=== PATIENT | female | born 1990 | race Caucasian/White ===

== ENCOUNTER 2022-02-06 19:43 | Emergency (ER) | payer BC ==
[2022-02-06 19:57] VITALS: TEMP 98.1
--- NOTE | 2022-02-07 07:19 | ED ---
General Adult HPI - General Chief complaint: Abdominal Pain Stated complaint: chest pain,back pain,nausea Time Seen by Provider: 02/07/22 07:05 Source: patient, RN notes reviewed, old records reviewed Mode of arrival: ambulatory Limitations: no limitations - History of Present Illness Initial comments: 32-year-old female presenting for evaluation of upper abdominal pain and left flank pain. Symptoms began about 13 hours prior to my evaluation. Patient developed this sharp pain followed by an episode of vomiting. She's had persistent nausea since that time. She has pain that wraps around the left upper abdomen into the left flank into the epigastrium. She denies continued vomiting and has been able to drink water but has persistent nausea. The pain is been constant. No dysuria or hematuria. Denies current . - Related Data Allergies Allergy/AdvReac Type Severity Reaction Status Date / Time morphine AdvReac Unknown Verified 02/06/22 19:57 Childhood Review of Systems ROS Statement: Those systems with pertinent positive or pertinent negative responses have been documented in the HPI. ROS Other: All systems not noted in ROS Statement are negative. Past Medical History Past Medical History: Unable to Obtain History of Any Multi-Drug Resistant Organisms: None Reported Past Surgical History: No Surgical Hx Reported Past Psychological History: No Psychological Hx Reported Smoking Status: Never smoker Past Alcohol Use History: Rare Past Drug Use History: None Reported General Exam Limitations: no limitations General appearance: alert, in no apparent distress Head exam: Present: atraumatic, normocephalic Eye exam: Present: normal appearance, PERRL ENT exam: Present: normal exam Neck exam: Present: normal inspection. Absent: tenderness, meningismus Respiratory exam: Present: normal lung sounds bilaterally. Absent: respiratory distress, wheezes Cardiovascular Exam: Present: regular rate, normal rhythm GI/Abdominal exam: Present: soft, tenderness (Epigastric). Absent: distended Extremities exam: Present: normal inspection, normal capillary refill Back exam: Present: normal inspection, CVA tenderness (L) Neurological exam: Present: alert, oriented X3, CN II-XII intact, normal gait. Absent: motor sensory deficit Psychiatric exam: Present: normal affect, normal mood Skin exam: Present: warm, dry, intact. Absent: cyanosis, diaphoretic Course Vital Signs 02/06/22 02/07/22 02/07/22 19:54 09:14 10:45 Temperature 98.1 F Pulse Rate 94 70 66 Respiratory 18 16 16 Rate Blood Pressure 152/86 158/83 147/79 O2 Sat by Pulse 100 100 100 Oximetry - Reevaluation(s) Reevaluation #1: 02/07/22 07:05 Patient admitted awaiting for 12 hours prior to my arrival. Reevaluation #2: 02/07/22 10:18 Patient feeling better not requiring any pain medicine. EKG Findings - EKG Comments: EKG Findings:: EKG: Sinus rhythm, rate of 89, KS interval 140, QRS duration 86, QTC 4:15, no ST segment elevation. Medical Decision Making - Medical Decision Making 32-year-old female with epigastric abdominal pain, workup initiated after a long wait in the emergency arm and waiting room. Normal CBC, normal CMP, and mild transaminitis with a normal bilirubin. Negative d-dimer, negative troponin, nonischemic EKG. I did perform an ultrasound of the gallbladder which radiology's interpretation is pending secondary to technical difficulties, this shows multiple gallstones, normal common bile duct, normal wall thickness. I discussed the results with Dr. Hastings covering for general surgery. He will see the patient in his office tomorrow. This appointment has been made. Please return with fever, worsening pain, or vomiting. - Lab Data Result diagrams: 02/07/22 07:29 02/07/22 07:29 Lab Results 02/07/22 02/07/22 02/07/22 Range/Units 07:29 07:29 07:29 WBC 9.0 (3.8-10.6) k/uL RBC 4.56 (3.80-5.40) m/uL Hgb 11.6 (11.4-16.0) gm/dL Hct 37.1 (34.0-46.0) % MCV 81.5 (80.0-100.0) fL MCH 25.4 (25.0-35.0) pg MCHC 31.1 (31.0-37.0) g/dL RDW 14.4 (11.5-15.5) % Plt Count 343 (150-450) k/uL MPV 6.3 Neutrophils % 78 % Lymphocytes % 15 % Monocytes % 5 % Eosinophils % 1 % Basophils % 0 % Neutrophils # 7.0 (1.3-7.7) k/uL Lymphocytes # 1.3 (1.0-4.8) k/uL Monocytes # 0.4 (0-1.0) k/uL Eosinophils # 0.1 (0-0.7) k/uL Basophils # 0.0 (0-0.2) k/uL Hypochromasia Slight APTT 23.8 (22.0-30.0) sec D-Dimer 0.49 (<0.60) mg/L FEU Sodium 137 (137-145) mmol/L Potassium 3.9 (3.5-5.1) mmol/L Chloride 101 (98-107) mmol/L Carbon Dioxide 27 (22-30) mmol/L Anion Gap 9 mmol/L BUN 11 (7-17) mg/dL Creatinine 0.69 (0.52-1.04) mg/dL Est GFR (CKD-EPI)AfAm >90 (>60 ml/min/1.73 sqM) Est GFR (CKD-EPI)NonAf >90 (>60 ml/min/1.73 sqM) Glucose 92 (74-99) mg/dL Calcium 9.3 (8.4-10.2) mg/dL Total Bilirubin 1.2 (0.2-1.3) mg/dL AST 353 H (14-36) U/L ALT 258 H (4-34) U/L Alkaline Phosphatase 160 H (38-126) U/L Troponin I (0.000-0.034) ng/mL Total Protein 8.3 H (6.3-8.2) g/dL Albumin 4.4 (3.5-5.0) g/dL Amylase 47 (30-110) U/L Lipase 45 (23-300) U/L Urine Color Urine Appearance (Clear) Urine pH (5.0-8.0) Ur Specific [place] (1.001-1.035) Urine Protein (Negative) Urine Glucose (UA) (Negative) Urine Ketones (Negative) Urine Blood (Negative) Urine Nitrite (Negative) Urine Bilirubin (Negative) Urine Urobilinogen (<2.0) mg/dL Ur Leukocyte Esterase (Negative) Urine RBC (0-5) /hpf Urine WBC (0-5) /hpf Ur Squamous Epith Cells (0-4) /hpf Amorphous Sediment (None) /hpf Urine Bacteria (None) /hpf Urine Mucus (None) /hpf Urine HCG, Qual (Not Detectd) 02/07/22 02/07/22 02/07/22 Range/Units 07:29 09:15 09:15 WBC (3.8-10.6) k/uL RBC (3.80-5.40) m/uL Hgb (11.4-16.0) gm/dL Hct (34.0-46.0) % MCV (80.0-100.0) fL MCH (25.0-35.0) pg MCHC (31.0-37.0) g/dL RDW (11.5-15.5) % Plt Count (150-450) k/uL MPV Neutrophils % % Lymphocytes % % Monocytes % % Eosinophils % % Basophils % % Neutrophils # (1.3-7.7) k/uL Lymphocytes # (1.0-4.8) k/uL Monocytes # (0-1.0) k/uL Eosinophils # (0-0.7) k/uL Basophils # (0-0.2) k/uL Hypochromasia APTT (22.0-30.0) sec D-Dimer (<0.60) mg/L FEU Sodium (137-145) mmol/L Potassium (3.5-5.1) mmol/L Chloride (98-107) mmol/L Carbon Dioxide (22-30) mmol/L Anion Gap mmol/L BUN (7-17) mg/dL Creatinine (0.52-1.04) mg/dL Est GFR (CKD-EPI)AfAm (>60 ml/min/1.73 sqM) Est GFR (CKD-EPI)NonAf (>60 ml/min/1.73 sqM) Glucose (74-99) mg/dL Calcium (8.4-10.2) mg/dL Total Bilirubin (0.2-1.3) mg/dL AST (14-36) U/L ALT (4-34) U/L Alkaline Phosphatase (38-126) U/L Troponin I <0.012 (0.000-0.034) ng/mL Total Protein (6.3-8.2) g/dL Albumin (3.5-5.0) g/dL Amylase (30-110) U/L Lipase (23-300) U/L Urine Color Yellow Urine Appearance Cloudy H (Clear) Urine pH 6.5 (5.0-8.0) Ur Specific [place] 1.011 (1.001-1.035) Urine Protein Negative (Negative) Urine Glucose (UA) Negative (Negative) Urine Ketones Negative (Negative) Urine Blood Moderate H (Negative) Urine Nitrite Negative (Negative) Urine Bilirubin Negative (Negative) Urine Urobilinogen <2.0 (<2.0) mg/dL Ur Leukocyte Esterase Large H (Negative) Urine RBC 5 (0-5) /hpf Urine WBC 4 (0-5) /hpf Ur Squamous Epith Cells 3 (0-4) /hpf Amorphous Sediment Occasional H (None) /hpf Urine Bacteria Rare H (None) /hpf Urine Mucus Rare H (None) /hpf Urine HCG, Qual Not Detected (Not Detectd) Disposition Clinical Impression: Biliary colic, Abdominal pain Disposition: HOME SELF-CARE Condition: Good Instructions (If sedation given, give patient instructions): Biliary Colic (ED), Gallstones (ED), Abdominal Pain (ED) Additional Instructions: You have an appointment scheduled for tomorrow with Dr. Hastings at 1:15 PM Is patient prescribed a controlled substance at d/c from ED?: No Referrals: None,Stated [REFERRING] - 1-2 days Marcus Hastings MD [STAFF PHYSICIAN] - 1-2 days Time of Disposition: 10:20
[2022-02-07 08:10] LABS: Basophils % (A) 0 %; Eosinophils # (A) 0.1 k/uL (0-0.7); Eosinophils % (A) 1 %; HCT 37.1 % (34.0-46.0); HGB 11.6 gm/dL (11.4-16.0); Hypochromasia Slight; Lymphocytes # (A) 1.3 k/uL (1.0-4.8); Lymphocytes % (A) 15 %; MCH 25.4 pg (25.0-35.0); MCHC 31.1 g/dL (31.0-37.0); MCV 81.5 fL (80.0-100.0); Mean Platelet Volume 6.3; Monocytes # (A) 0.4 k/uL (0-1.0); Monocytes % (A) 5 %; Neutrophils % (A) 78 %; Platelet Count 343 k/uL (150-450); RBC 4.56 m/uL (3.80-5.40); RDW 14.4 % (11.5-15.5)
[2022-02-07 08:25] LABS: Partial Thromboplastin Time 23.8 sec (22.0-30.0)
[2022-02-07 08:29] LABS: ALT 258 U/L (4-34); AST 353 U/L (14-36); African American GFR (CKD) >90 (>60 ml/min/1.73 sqM); Albumin 4.4 g/dL (3.5-5.0); Alkaline Phosphatase 160 U/L (38-126); Amylase 47 U/L (30-110); Anion Gap 9 mmol/L; Blood Urea Nitrogen 11 mg/dL (7-17); Calcium 9.3 mg/dL (8.4-10.2); Carbon Dioxide 27 mmol/L (22-30); Chloride 101 mmol/L (98-107); Glucose 92 mg/dL (74-99); Lipase 45 U/L (23-300); Non-African American GFR(CKD) >90 (>60 ml/min/1.73 sqM); Potassium 3.9 mmol/L (3.5-5.1); Sodium 137 mmol/L (137-145); Total Bilirubin 1.2 mg/dL (0.2-1.3); Total Protein 8.3 g/dL (6.3-8.2)
[2022-02-07 09:15] VITALS: RESP 16
[2022-02-07 09:55] LABS: Amorphous Sediment,Urine Occasional /hpf; Appearance,Urine Cloudy (Clear); Bacteria,Urine Rare /hpf; Bilirubin,Urine Negative (Negative); Blood,Urine Moderate (Negative); Color,Urine Yellow; Glucose,Urine (UA) Negative (Negative); Ketones,Urine Negative (Negative); Leukocyte Esterase,Urine Large (Negative); Mucus,Urine Rare /hpf; Nitrite,Urine Negative (Negative); PH, Urine 6.5 (5.0-8.0); Protein,Urine Negative (Negative); RBC,Urine 5 /hpf (0-5); Specific Gravity,Urine 1.011 (1.001-1.035); Squamous Epithelial Cell,Urine 3 /hpf (0-4); Urobilinogen,Urine <2.0 mg/dL (<2.0); WBC,Urine 4 /hpf (0-5)
[2022-02-07 10:46] VITALS: BP 147/79; PULSE 66
--- NOTE | 2022-02-08 13:54 | XR ---
KUB HISTORY: Abdominal pain For a KUB submitted on 2 images, no comparisons Lung bases are clear. There are overlying artifacts. Within the abdomen there is no evident bowel obs truction or pneumoperitoneum. Bone mineralization is normal. No pathologic calcification evident. IMPRESSION: Nonspecific findings
--- NOTE | 2022-02-08 14:50 | US ---
EXAMINATION TYPE: US gallbladder DATE OF EXAM: 02/07/2022 COMPARISON: CLINICAL HISTORY: ab pain. RUQ pain. EC patient. TECHNIQUE: Multiple sonographic images of the right upper quadrant are obtained. FINDINGS: EXAM MEASUREMENTS: Liver Length: 15.4 cm Gallbladder Wall: 0.3 cm CBD: 0.6 cm Right Kidney: 9.9 x 4.7 x 4.4 cm Pancreas: Echogenic in appearance. Tail obscured by bowel gas. Liver: wnl Gallbladder: Multiple echogenic foci seen, gallbladder filled with stones Evidence for sonographic Harper's sign: neg CBD: Borderline dilated Right Kidney: No hydronephrosis or masses seen Results given to Dr Sahu IMPRESSION: There are some limitations the exam. Cholelithiasis, there is borderline dilation of the common bile duct.
== END 2022-02-07 10:46 | disposition home or self-care (01) ==
LOC: EC 19:43
DX: K80.50 Calculus of bile duct without cholangitis or cholecystitis without obstruction (principal); Z88.6 Allergy status to analgesic agent
CPT/HCPCS: 36415; 74018; 76705; 80053; 81001; 81025; 82150; 83690; 84484; 85025; 85379; 85730; 99285

== ENCOUNTER → 2022-02-13 | Outpatient (CLI) | payer BC ==
[2022-02-13 18:25] LABS: Basophils # (A) 0.02 X 10*3/uL (0.00-0.10); Basophils % (A) 0.3 %; Eosinophils # (A) 0.07 X 10*3/uL (0.04-0.35); HCT 33.9 % (37.2-46.3); HGB 10.5 g/dL (12.0-15.0); Immature Grans, Automated 0.3 %; Lymphocytes # (A) 1.77 X 10*3/uL (0.90-5.00); Lymphocytes % (A) 24.5 %; MCH 25.7 pg (27.0-32.0); MCV 83.1 fL (80.0-97.0); Mean Platelet Volume 8.3 fL (9.5-12.2); Monocytes # (A) 0.46 X 10*3/uL (0.20-1.00); Monocytes % (A) 6.4 %; NRBC Per 100 WBC 0 /100 WBCS (0.0-0.0); Neutrophils # (A) 4.89 X 10*3/uL (1.80-7.70); Neutrophils % (A) 67.5 %; Platelet Count 323 X 10*3/uL (140-440); RBC 4.08 X 10*6/uL (4.10-5.20); RDW 14.4 % (11.5-14.5); WBC 7.23 X 10*3/uL (4.50-10.00)
== END | disposition home or self-care (01) ==
LOC: LABPAT 10:49
PROVIDERS: ATTEND Surgery
DX: Z01.818 Encounter for other preprocedural examination (principal); Z01.812 Encounter for preprocedural laboratory examination; K80.20 Calculus of gallbladder without cholecystitis without obstruction
CPT/HCPCS: 85025

== ENCOUNTER 2022-02-14 06:15 | Day surgery (SDC) | payer BC ==
[2022-02-13 08:41] VITALS: BMI 50.8
[~2022-02-14 06:15] MED LIST: ACETAMINOPHEN TAB 500 MG TAB PO PRN; DEXAMETHASONE SOD PHOSPHATE 4 MG/ML 1 ML VIAL IV ONE; HEPARIN SODIUM,PORCINE/PF 5,000 UNIT/0.5 ML SYRINGE SQ PRN; LACTATED RINGERS 1,000 ML IV SCH; LIDOCAINE 1% (10MG/ML) FOR IV START INTRADERMA PRN; ONDANSETRON 4 MG/2 ML VIAL IVP ONE; SCOPOLAMINE 1 MG/72 HR PATCH TRANSDERM ONE
[2022-02-14] MEDS ORDERED: ACETAMINOPHEN TAB 500 MG TAB ONE (07:22)
[2022-02-14] MEDS ORDERED: HEPARIN SODIUM,PORCINE/PF 5,000 UNIT/0.5 ML SYRINGE SQ ONE (07:22)
[2022-02-14] MEDS ORDERED: fentaNYL (PF) 50 MCG/ML 2 ML AMP ONE (07:48)
[2022-02-14] MEDS ORDERED: NEOSTIGMINE 1 MG/ML 10 ML VIAL ONE (07:48)
[2022-02-14] MEDS ORDERED: PROPOFOL 10 MG/ML 20 ML VIAL IV ONE (07:48)
[2022-02-14] MEDS ORDERED: MIDAZOLAM 2 MG/2 ML VIAL ONE (07:48)
[2022-02-14] MEDS ORDERED: GLYCOPYRROLATE 0.2 MG/ML 2 ML VIAL ONE (07:48)
[2022-02-14] MEDS ORDERED: LIDOCAINE 2% INJ 20 MG/ML (2 ML VIAL) ONE (07:48)
[2022-02-14] MEDS ORDERED: SUCCINYLCHOLINE CHLORIDE 200 MG/10 ML VIAL IV ONE (07:48)
[2022-02-14] MEDS ORDERED: ROCURONIUM 10 MG/ML (5 ML VIAL) IV ONE (07:48)
[2022-02-14] MEDS ORDERED: HYDROmorphone (PF) 1 MG/ML ONE (07:48)
[2022-02-14] MEDS ORDERED: BUPIVACAIN-EPI 0.25%-1:200,000 30 ML VIAL SQ ONE ×2 (08:20)
[2022-02-14] MEDS ORDERED: LACTATED RINGERS 1,000 ML IV ONE (08:53)
--- NOTE | 2022-02-14 09:02 | P.GSHP ---
History of Present Illness H&P Date: 02/14/22 Chief Complaint: Right upper quadrant pain This a 32-year-old female who presents today for laparoscopic cholecystectomy. Patient rents were quadrant pain. Recent ultrasound shows evidence of cholelithiasis. Past Medical History Past Medical History: No Reported History History of Any Multi-Drug Resistant Organisms: None Reported Past Surgical History: Ear Surgery Past Anesthesia/Blood Transfusion Reactions: No Reported Reaction Past Psychological History: No Psychological Hx Reported Smoking Status: Never smoker Past Alcohol Use History: Rare Past Drug Use History: None Reported - Past Family History Mother Family Medical History: No Reported History Father Family Medical History: Deep Vein Thrombosis (DVT) Medications and Allergies Home Medications Medication Instructions Recorded Confirmed Type No Known Home Medications 02/13/22 02/14/22 History Allergies Allergy/AdvReac Type Severity Reaction Status Date / Time morphine AdvReac Unknown Verified 02/14/22 06:47 Surgical - Exam Vital Signs Temp Pulse Resp BP Pulse Ox 97.7 F 67 18 119/72 99 02/14/22 07:00 02/14/22 07:00 02/14/22 07:00 02/14/22 07:00 02/14/22 07:00 - General well developed, well nourished, no distress - Eyes PERRL - ENT normal pinna - Neck no masses - Respiratory normal expansion - Cardiovascular Rhythm: regular - Abdomen Abdomen: soft, non tender Assessment and Plan Assessment: Cholelithiasis Chronically status We'll perform laparoscopic cholecystectomy
--- NOTE | 2022-02-14 09:05 | P.OP ---
Date of Procedure: 02/14/22 Preoperative Diagnosis: Cholecystitis Cholelithiasis Postoperative Diagnosis: Cholecystitis Cholelithiasis Procedure(s) Performed: Laparoscopic cholecystectomy Anesthesia: YAZMIN Surgeon: Marcus Hastings Estimated Blood Loss (ml): 5 Pathology: other (Gallbladder) Condition: stable Disposition: PACU Description of Procedure: The patient's placed on the operating table in the supine position. She received general endotracheal anesthesia. The abdomen was prepped and draped usual fashion. The skin incision sites were anesthetized 1% local Xylocaine. Using a 11 blade a skin incision was made at the umbilicus. Then using a pair of [place] clamps the fascia was grasped in the Veress needles placed into the peritoneal cavity. Position of the Veress needle was confirmed with positive drop test. The abdomen was insufflated. After adequate insufflation a 5 mm optical trocar is placed into the perineal cavity. Next a 8 mm robotic trochars placed in the left epigastric area. And then 28 mm robotic trochars placed in the right lateral and right midabdomen position. The original 5 ohmmeter trocar was exchanged for an 8 mm robotic trocar. The patient's placed in reverse Trendelenburg right side up position. And then docked to the robot. The gallbladder was then grasped traction the gallbladder is placed in the cephalad lateral position. The cystic duct was seen. The cystic duct was then dissected. The critical view of safety was achieved between the cystic duct common bile duct and common hepatic duct. The cystic duct was then clipped and divided with 2 clips placed proximally and one distally. The cystic duct was then cut with a pair of robotic scissors. The cystic artery was then clipped and then divided with electrocautery. The gallbladder was removed from gallbladder bed using left cautery. The patient was undocked from the robot. And the gallbladder was extracted through the left epigastric port site. The trochars withdrawn. The skin was closed interrupted 3-0 Monocryl suture. Dermabond dressing applied. Patient top she will was sent to recovery room in stable condition.
[2022-02-14] MEDS: fentaNYL (PF) 50 MCG/ML 2 ML AMP IV PRN ×3 (09:31→10:07)
[2022-02-14 09:39] VITALS: TEMP 96.8
[2022-02-14] MEDS ORDERED: ONDANSETRON 4 MG/2 ML VIAL ONE (11:11)
[2022-02-14 11:51] VITALS: RESP 16
[2022-02-14 12:20] VITALS: PULSE 94
[2022-02-14 13:32] VITALS: BP 122/71
== END 2022-02-14 13:30 | disposition home or self-care (01) ==
LOC: OR 06:15
PROVIDERS: ATTEND Surgery
DX: K80.10 Calculus of gallbladder with chronic cholecystitis without obstruction (principal); E66.01 Morbid (severe) obesity due to excess calories; Z68.43 Body mass index [BMI] 50.0-59.9, adult; Z82.49 Family history of ischemic heart disease and other diseases of the circulatory system; Z98.890 Other specified postprocedural states
CPT/HCPCS: 47562; 81025; 86900; 86901; 88304; 86850; J2250; J0330; J1100; J2710; J0690; J2405; J3010; J1170; J2704; J1790; J1644; J2001